=== PATIENT | female | born 1975 | race Caucasian/White ===

== ENCOUNTER 2024-03-04 04:12 | Day surgery (SDC) | payer BC, OTHER ==
[2024-02-25 13:40] VITALS: BMI 25.3
[2024-03-04 08:09] VITALS: RESP 18
[2024-03-04] MEDS ORDERED: MIDAZOLAM HCL 2 MG/2 ML SINGLE DOSE VIAL ONE (09:23)
[2024-03-04] MEDS ORDERED: PROPOFOL 20 ML ONE (09:23)
[2024-03-04] MEDS ORDERED: ONDANSETRON 4 MG/2 ML VIAL IVPUSH PRN (10:09)
[2024-03-04] MEDS ORDERED: IBUPROFEN 800 MG/8 ML IJ IVPB PRN (10:09)
[2024-03-04] MEDS ORDERED: oxyCODONE HCL 5 MG TABLET PO PRN (10:09)
[2024-03-04] MEDS ORDERED: IBUPROFEN 600 MG TABLET (FP) PO PRN (10:09)
[2024-03-04] MEDS ORDERED: LACTATED RINGERS SOLUTION 1,000 ML IV SCH (10:15)
[2024-03-04] MEDS ORDERED: ELECTROLYTE-148 SOLN 1,000 ML IV SCH (10:15)
[2024-03-04 12:20] VITALS: BP 99/59; PULSE 62; TEMP 97.1
== END 2024-03-04 12:47 | disposition home or self-care (01) ==
LOC: JASU-SURG 04:12
PROVIDERS: ATTEND Obstetrics & Gynecology
PROC: 0UB98ZZ Excision of Uterus, Via Natural or Artificial Opening Endoscopic (ICD-10-PCS; principal; 2024-03-04 09:00)
DX: N93.8 Other specified abnormal uterine and vaginal bleeding (principal); N84.0 Polyp of corpus uteri
CPT/HCPCS: 81025; 88305-TC; 94760